=== PATIENT | female | born 1985 | race Caucasian/White ===

== ENCOUNTER 2023-12-18 10:39 | Emergency (ER) | payer MEDICAID ==
[~2023-12-18] VITALS: Ht 154.9 cm; Wt 88.5 kg
[2023-12-18] MEDS: diphenhydrAMINE 25mg capsule PO ONE (11:36)
[2023-12-18 12:30] VITALS: BP 153/106; PULSE 97; RESP 15; TEMP 98; O2SAT 97
== END 2023-12-18 12:33 | disposition home or self-care (01) ==
LOC: ER 10:39
DX: H10.89 Other conjunctivitis (principal); Z88.8 Allergy status to other drugs, medicaments and biological substances
CPT/HCPCS: 99282; A6222; Q0163; 99283